=== PATIENT | female | born 1995 | race Hispanic/Latino ===

== ENCOUNTER 2018-08-07 12:43 | Emergency (ER) | payer MEDICAID, OTHER | END 2018-08-07 13:33 | disposition home or self-care (01) | LOC: EDH 12:43 | DX: H00.011 Hordeolum externum right upper eyelid (principal) ==

== ENCOUNTER 2019-07-11 00:29 | Emergency (ER) | payer OTHER ==
[2019-07-11] MEDS ORDERED: IBUPROFEN 400 MG TABLET ONE (01:06)
[2019-07-11] MEDS ORDERED: ONDANSETRON ODT 4 MG TAB ONE (01:06)
[2019-07-11 01:20] LABS: APPEARANCE,URINE Cloudy (CLEAR); BILIRUBIN,URINE Negative (NEGATIVE); COLOR,URINE Yellow (YELLOW); GLUCOSE, URINE (UA) Negative (NEGATIVE); KETONES,URINE Negative (NEGATIVE); LEUKOCYTE ESTERASE ,URINE Moderate (NEGATIVE); NITRATE,URINE Negative (NEGATIVE); OCCULT BLOOD,URINE Large (NEGATIVE); PROTEIN,URINE Trace mg/dL (NEGATIVE); UROBILINOGEN,URINE 0.2 mg/dL (0.2-1.0)
[2019-07-11 01:21] LABS: HCG,QUAL RESULT NEGATIVE (NEGATIVE)
[2019-07-11 02:05] LABS: BACTERIA,URINE Few /HPF (None Seen)
[2019-07-11] MEDS ORDERED: NITROFURANTOIN MONOHYD/M-CRYST 100 MG CAPSULE PO ONE (02:21)
== END 2019-07-11 02:32 | disposition home or self-care (01) ==
LOC: EDH 00:29
DX: N39.0 Urinary tract infection, site not specified (principal); F32.9 Major depressive disorder, single episode, unspecified; F41.9 Anxiety disorder, unspecified
CPT/HCPCS: 81001; 81025